=== PATIENT | female | born 1940 ===

== ENCOUNTER 2016-09-04 17:08 | Emergency (ER) | payer OTHER ==
[2016-09-04 17:22] VITALS: TEMP 36.6; Ht 157.5 cm
--- NOTE | 2016-09-04 18:16 | EMERGENCY ROOM VISIT NOTE ---
ED Visit Note First contact with patient: 18:05 CHIEF COMPLAINT: Ankle pain HISTORY OF PRESENT ILLNESS: This 76-year-old female patient presents to the emergency department ambulatory after sustaining an injury to the left ankle and foot with a twisting, inversion motion when she slipped off a step his prior to arrival. Complains of moderate swelling and pain. The patient complains of pain along the outside of the ankle. The patient does not have pain of the foot. The patient rates the pain as sharp and 4/10. There was no audible pop. The patient is able to bear weight on the foot. Constant pain, worse with movement, weight bearing, and the dependent position. No knee pain, the patient is able to move their toes. No numbness or weakness of the foot, no laceration. The patient has not had a previous injury to this ankle. The patient has taken at for the pain. The patient denies any other injury. REVIEW OF SYSTEMS: A 6 system review of systems was completed with positives and pertinent negatives listed in the HPI. ALLERGIES: No known drug allergies MEDICATIONS: None PMH: None SOCIAL HISTORY: The patient lives in [facility] and is visiting for graduation PHYSICAL EXAM: Vital Signs: Reviewed Nurse's notes, vital signs stable. GENERAL : This is a 76-year-old female, no acute distress, but appears in pain, well- developed, well-nourished. MENTAL STATUS: Alert, oriented to person place and time, and cooperative. MUSCULOSKELETAL: The left ankle is swollen and tender over the lateral malleolus, but the skin is intact and there is no ligamentous instability. There is minimal fifth metatarsal tenderness. There is now tenderness over the rest of the foot. There is no calf or tibia/fibular tenderness. There is no visual deformity. The foot and toes are warm and well- perfused. Dorsalis pedis pulse 2+. Sensation to pain and light touch is intact. Capillary refill less than 2 seconds. EMERGENCY DEPARTMENT COURSE: I examined the patient. X-rays of the left ankle were reviewed by myself and read by radiology and reveal age indeterminate cuboid avulsion fracture. I reevaluated the patient and palpated the area of the cuboid and over the entire foot and the patient had only minimal tenderness over the fifth metatarsal. She does not recall any specific injury but this may represent an old avulsion fracture. There is no evidence of fibular fracture. A general splint was applied to the ankle under my direction and the position was satisfactory. Neurovascular status was rechecked and intact. The patient was instructed on the use of a walker. She was given her x-rays on disc to follow-up when she returns home. She should return sooner with any worsening symptoms. The patient was discharged home in good condition. The patient was also seen and examined by who agrees with the assessment and treatment plan. Current/Historical Medications Scheduled Fish Oil ([place]-3), 1 CAP PO DAILY [Blopress], 8 MG PO DAILY Allergies Coded Allergies: No Known Allergies (Unverified , 09/04/16) Vital Signs Date Time Temp Pulse Resp B/P Pulse Ox O2 Delivery O2 Flow Rate FiO2 09/04/16 19:44 71 18 135/65 95 09/04/16 19:09 71 18 135/65 95 Room Air 09/04/16 17:22 36.6 77 17 141/70 99 Room Air Departure Information Impression Primary Impression: Left ankle pain Dispostion Home / Self-Care Condition GOOD Referrals No Doctor, Assigned (PCP) Kirby Smart M.D. Patient Instructions Ankle Sprain, My [facility] [employer] Additional Instructions Ice and elevate ankle for swelling and pain. Crutches with weight bearing as tolerated. Wear the splint 7-14 days or until pain subsides. Ibuprofen 600 mg every 6 hrs for pain. If ankle has not improved within 5-7 days, follow-up family doctor or orthopedic surgeon for further evaluation and management. Problem Qualifiers Primary Impression: Left ankle pain Chronicity: acute Qualified Codes: M25.572 - Pain in left ankle and joints of left foot
--- NOTE | 2016-09-04 18:33 | DIAGNOSTIC IMAGING REPORT ---
LEFT ANKLE MIN 3 VIEWS ROUTINE CLINICAL HISTORY: Left ankle pain status post trauma COMPARISON: None. DISCUSSION: No fractures or dislocations are visualized involving the distal tibia or fibula. There is an age-indeterminate avulsion arising from the cuboid. There is lateral soft tissue swelling. IMPRESSION: Age-indeterminate cuboid avulsion fracture. Electronically signed by: West Mitchell M.D. 09/04/2016 6:32 PM Dictated Date/Time: 09/04/2016 6:30 PM
--- NOTE | 2016-09-04 18:35 | DIAGNOSTIC IMAGING REPORT ---
LEFT FOOT MIN 3 VIEWS ROUTINE CLINICAL HISTORY: Left foot pain status post trauma COMPARISON: None. DISCUSSION: There is an age-indeterminate avulsion fracture arising from the plantar aspect of the cuboid. No additional fractures are visualized. There is lateral soft tissue swelling. IMPRESSION: Age-indeterminate cuboid avulsion fracture. Please correlate with the patient's site of pain. Electronically signed by: West Mitchell M.D. 09/04/2016 6:34 PM Dictated Date/Time: 09/04/2016 6:32 PM
[2016-09-04] MEDS ORDERED: OMEG10007 PO (19:15)
[2016-09-04] MEDS ORDERED: CANDESARTAN PO (19:15)
[2016-09-04 19:44] VITALS: BP 135/65; PULSE 71; O2SAT 95
--- NOTE | 2016-09-05 03:46 | EMERGENCY ROOM VISIT NOTE ---
ED Visit Note First contact with patient: 18:05 I have personally evaluated this patient examined her and reviewed the pertinent labs and data. I have discussed the case with Yari Steele, the physician assistant accounting manager and agree with the plan. Please refer to the PA note. This patient comes in after spraining and injuring her left ankle. She is tender laterally. X-rays do not show any fracture of the ankle. There is a questionable cuboid fracture versus scar however she has no tenderness there so I think it's probably old. She was given a gel splint. She is to rest ice and elevate and use ibuprofen for pain. Return if increasing pain, worsening symptoms, fever chills, any new problems or concerns. Follow up with her doctor when she gets back home.
== END 2016-09-04 19:44 | disposition home or self-care (01) ==
LOC: C.EDB 17:13 → C.EDD 19:44
DX: M25.572 Pain in left ankle and joints of left foot (principal)